=== PATIENT | male | born 1940 | race Caucasian/White ===

== ENCOUNTER 2017-06-04 07:52 | Outpatient (CLI) | payer MEDICARE ==
[2017-06-04 08:54] LABS: #Basophils 0.1 thou/uL (0.0-0.2); #Eosinphils 0.3 thou/uL (0.0-0.7); #Monocytes 0.6 thou/uL (0.11-0.59); #Neutrophils 5.5 thou/uL (1.40-6.50); %Eosinophils 3.5 % (0.0-10.0); %Lymphocytes 23.5 % (21.0-51.0); %Monocytes 7.1 % (0.0-10.0); Hemoglobin 15.8 g/dL (14.0-18.0); Mean Corpuscular HGB CONC 32.4 g/dL (32.0-36.0); Mean Corpuscular Hemoglobin 30.6 pg (27.0-31.0); Mean Corpuscular Volume 94.5 fl (80.0-94.0); Mean Platelet Volume 10.4 fL (7.4-10.4); Platelet Count 236 thou/uL (130-400); RBC Distribution Width 12.9 % (11.5-14.5); Red Blood Cell (RBC) Count 5.18 mill/uL (4.70-6.10); White Blood Cell (WBC) Count 8.5 thou/uL (4.8-10.8)
[2017-06-04 09:10] LABS: ALT (SGPT) 16 U/L (8-55); AST (SGOT) 15 U/L (5-34); Albumin 4.2 g/dL (3.4-4.8); Alkaline Phosphatase 92 U/L (40-150); Anion Gap 15 mmol/L (10-20); BUN (Urea Nitrogen) 7 mg/dL (8.4-25.7); Bilirubin, Total 0.7 mg/dL (0.2-1.2); Calc. Creatinine Clearance 0 mL/min (70-130); Calcium 9.4 mg/dL (7.8-10.44); Carbon Dioxide 25 mmol/L (23-31); Chloride 105 mmol/L (98-107); Estimated GFR-MDRD 79; Globulin 2.3 g/dL (2.4-3.5); Glucose 110 mg/dL (83-110); Potassium 4.2 mmol/L (3.5-5.1); Protein, Total 6.5 g/dL (5.8-8.1); Sodium 141 mmol/L (136-145)
== END 2017-06-04 07:53 | disposition home or self-care (01) ==
LOC: MADLABBHPM 07:52
PROVIDERS: ATTEND Family Medicine
DX: R63.4 Abnormal weight loss (principal)
CPT/HCPCS: 80053; 84443; 85025

== ENCOUNTER 2019-06-02 17:44 | Inpatient (IN) | payer MEDICARE ==
[2019-06-02] MEDS ORDERED: Famotidine 20 MG TAB PO PRN (23:57)
[2019-06-03] MEDS: Melatonin 3 MG TAB PO PRN ×2 (00:26→21:04)
[2019-06-03] MEDS: Acetaminophen/Codeine 30-300mg Tablet PO SCH ×4 (00:26→17:20)
[2019-06-03] MEDS: Ibuprofen 600 MG TAB PO SCH ×3 (05:41→21:04)
[2019-06-03 06:00] LABS: Hemoglobin 9.2 g/dL (14.0-18.0); Mean Corpuscular HGB CONC 33.7 g/dL (32.0-36.0); Mean Corpuscular Hemoglobin 30.6 pg (27.0-31.0); Mean Corpuscular Volume 90.7 fL (78.0-98.0); Mean Platelet Volume 7.7 fL (7.4-10.4); Platelet Count 166 thou/uL (130-400); Red Blood Cell (RBC) Count 3.02 mill/uL (4.70-6.10); White Blood Cell (WBC) Count 12.3 thou/uL (4.8-10.8)
[2019-06-03 06:06] LABS: ALT (SGPT) 18 U/L (8-55); AST (SGOT) 27 U/L (5-34); Albumin 2.9 g/dL (3.4-4.8); Alkaline Phosphatase 82 U/L (40-150); Anion Gap 15 mmol/L (10-20); BUN (Urea Nitrogen) 13 mg/dL (8.4-25.7); Bilirubin, Total 1.2 mg/dL (0.2-1.2); Calc. Creatinine Clearance 116 mL/min (70-130); Calcium 8.3 mg/dL (7.8-10.44); Carbon Dioxide 26 mmol/L (23-31); Chloride 101 mmol/L (98-107); Estimated GFR-MDRD Greater than 90; Globulin 2.5 g/dL (2.4-3.5); Glucose 77 mg/dL (83-110); Potassium 3.8 mmol/L (3.5-5.1); Protein, Total 5.4 g/dL (5.8-8.1); Sodium 138 mmol/L (136-145)
[2019-06-03 06:39] LABS: Anisocytosis SLIGHT = 6-15 cells (100X) (0-5/hpf); Band 8 % (5-11); Eosinophils 2 % (0-10); Lymphocytes 19 % (21-51); MDiff Complete? YES; Monocytes 8 % (0-10); Neutrophil 63 % (42-75); Platelet Morphology Comment Appears Adequate
[2019-06-03] MEDS: Rivastigmine 1.5 MG CAP PO SCH ×2 (09:42→17:19)
[2019-06-03] MEDS: Metoprolol Tartrate 25 MG TAB PO SCH (09:43)
[2019-06-03] MEDS: Clopidogrel Bisulfate 75 MG TAB PO SCH (09:43)
[2019-06-03] MEDS: Folic Acid 1 MG TAB PO SCH (09:43)
[2019-06-03] MEDS: Aspirin 325 MG TAB PO SCH (09:43)
[2019-06-03] MEDS: Dutasteride 0.5 MG CAP PO SCH (09:43)
[2019-06-03] MEDS: Ubidecarenone 50 MG CAP PO SCH (09:44)
[2019-06-03] MEDS: traMADol HCl 50 MG TAB PO PRN (10:45)
[2019-06-03] MEDS: Loratadine 10 MG TAB PO PRN (14:56)
[2019-06-03] MEDS: Atorvastatin Calcium 10 MG TAB PO SCH (20:25)
[2019-06-04] MEDS: Acetaminophen/Codeine 30-300mg Tablet PO SCH ×5 (00:36→23:01)
[2019-06-04] MEDS: traMADol HCl 50 MG TAB PO PRN ×2 (01:10→06:59)
[2019-06-04] MEDS: Loratadine 10 MG TAB PO PRN ×2 (04:40→08:18)
[2019-06-04] MEDS: Ibuprofen 600 MG TAB PO SCH ×3 (05:06→21:00)
[2019-06-04] MEDS: Dutasteride 0.5 MG CAP PO SCH (08:17)
[2019-06-04] MEDS: Aspirin 325 MG TAB PO SCH (08:18)
[2019-06-04] MEDS: Metoprolol Tartrate 25 MG TAB PO SCH (08:18)
[2019-06-04] MEDS: Clopidogrel Bisulfate 75 MG TAB PO SCH (08:18)
[2019-06-04] MEDS: Ubidecarenone 50 MG CAP PO SCH (08:18)
[2019-06-04] MEDS: Rivastigmine 1.5 MG CAP PO SCH ×2 (08:18→17:50)
[2019-06-04] MEDS: Folic Acid 1 MG TAB PO SCH (08:18)
[2019-06-04] MEDS: Melatonin 3 MG TAB PO PRN (21:00)
[2019-06-04] MEDS: Atorvastatin Calcium 10 MG TAB PO SCH (21:00)
[2019-06-05] MEDS: Ibuprofen 600 MG TAB PO SCH ×4 (05:12→21:05)
[2019-06-05] MEDS: Acetaminophen/Codeine 30-300mg Tablet PO SCH ×3 (05:12→17:25)
[2019-06-05] MEDS: Ubidecarenone 50 MG CAP PO SCH (08:25)
[2019-06-05] MEDS: Rivastigmine 1.5 MG CAP PO SCH ×2 (08:26→17:30)
[2019-06-05] MEDS: Folic Acid 1 MG TAB PO SCH (08:26)
[2019-06-05] MEDS: Metoprolol Tartrate 25 MG TAB PO SCH (08:26)
[2019-06-05] MEDS: Dutasteride 0.5 MG CAP PO SCH (08:26)
[2019-06-05] MEDS: Aspirin 325 MG TAB PO SCH (08:26)
[2019-06-05] MEDS: Loratadine 10 MG TAB PO PRN ×2 (08:26→21:05)
[2019-06-05] MEDS: Clopidogrel Bisulfate 75 MG TAB PO SCH (08:26)
[2019-06-05] MEDS: Atorvastatin Calcium 10 MG TAB PO SCH (21:05)
[2019-06-05] MEDS: Melatonin 3 MG TAB PO PRN (21:05)
[2019-06-06] MEDS: Acetaminophen/Codeine 30-300mg Tablet PO SCH ×2 (01:02→05:27)
[2019-06-06] MEDS: Ibuprofen 600 MG TAB PO SCH (05:27)
[2019-06-06] MEDS: Ibuprofen 800 MG TAB PO SCH ×3 (06:14→21:04)
[2019-06-06] MEDS: HYDROcodone/Acetaminophen 10/325 mg Tablet PO PRN ×2 (08:20→18:46)
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
[2019-06-06] MEDS: Ubidecarenone 50 MG CAP PO SCH (08:21)
[2019-06-06] MEDS: Dutasteride 0.5 MG CAP PO SCH (08:21)
[2019-06-06] MEDS: Clopidogrel Bisulfate 75 MG TAB PO SCH (08:21)
[2019-06-06] MEDS: Metoprolol Tartrate 25 MG TAB PO SCH (08:22)
[2019-06-06] MEDS: Loratadine 10 MG TAB PO PRN (08:22)
[2019-06-06] MEDS: Folic Acid 1 MG TAB PO SCH (08:22)
[2019-06-06] MEDS: Rivastigmine 1.5 MG CAP PO SCH ×2 (08:22→17:30)
[2019-06-06] MEDS: Aspirin 325 MG TAB PO SCH (08:22)
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
[2019-06-06] MEDS: Atorvastatin Calcium 10 MG TAB PO SCH (21:07)
[2019-06-07] MEDS: HYDROcodone/Acetaminophen 10/325 mg Tablet PO PRN ×3 (05:42→21:56)
[2019-06-07] MEDS: Ibuprofen 800 MG TAB PO SCH ×3 (05:43→21:56)
[2019-06-07 06:26] LABS: #Basophils 0.1 thou/uL (0.0-0.2); #Eosinphils 0.7 thou/uL (0.0-0.7); #Lymphocytes 2.1 thou/uL (1.20-3.40); #Neutrophils 8.6 thou/uL (1.40-6.50); %Basophils 0.7 % (0.0-1.0); %Eosinophils 5.8 % (0.0-10.0); %Lymphocytes 16.8 % (21.0-51.0); %Neutrophils 68.7 % (42.0-75.0); Hemoglobin 9.5 g/dL (14.0-18.0); Mean Corpuscular HGB CONC 34.4 g/dL (32.0-36.0); Mean Corpuscular Hemoglobin 30.8 pg (27.0-31.0); Mean Corpuscular Volume 89.5 fL (78.0-98.0); Mean Platelet Volume 6.1 fL (7.4-10.4); Platelet Count 329 thou/uL (130-400); Red Blood Cell (RBC) Count 3.07 mill/uL (4.70-6.10); White Blood Cell (WBC) Count 12.4 thou/uL (4.8-10.8)
[2019-06-07 06:40] LABS: Anion Gap 14 mmol/L (10-20); BUN (Urea Nitrogen) 12 mg/dL (8.4-25.7); Calc. Creatinine Clearance 118 mL/min (70-130); Calcium 8.4 mg/dL (7.8-10.44); Carbon Dioxide 24 mmol/L (23-31); Chloride 102 mmol/L (98-107); Estimated GFR-MDRD Greater than 90; Glucose 93 mg/dL (83-110); Potassium 3.3 mmol/L (3.5-5.1); Sodium 137 mmol/L (136-145)
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
[2019-06-07] MEDS: Rivastigmine 1.5 MG CAP PO SCH ×2 (09:23→16:15)
[2019-06-07] MEDS: Dutasteride 0.5 MG CAP PO SCH (09:23)
[2019-06-07] MEDS: Clopidogrel Bisulfate 75 MG TAB PO SCH (09:23)
[2019-06-07] MEDS: Aspirin 325 MG TAB PO SCH (09:24)
[2019-06-07] MEDS: Metoprolol Tartrate 25 MG TAB PO SCH (09:24)
[2019-06-07] MEDS: Folic Acid 1 MG TAB PO SCH (09:24)
[2019-06-07] MEDS: Potassium Chloride 10 MEQ TAB PO SCH ×2 (09:29→16:14)
[2019-06-07] MEDS: Atorvastatin Calcium 10 MG TAB PO SCH (21:58)
[2019-06-08] MEDS: Ibuprofen 800 MG TAB PO SCH ×3 (05:15→21:19)
[2019-06-08] MEDS: HYDROcodone/Acetaminophen 10/325 mg Tablet PO PRN ×4 (05:16→23:07)
[2019-06-08] MEDS: Rivastigmine 1.5 MG CAP PO SCH ×2 (08:07→17:14)
[2019-06-08] MEDS: Dutasteride 0.5 MG CAP PO SCH (08:07)
[2019-06-08] MEDS: Metoprolol Tartrate 25 MG TAB PO SCH ×2 (08:07→21:19)
[2019-06-08] MEDS: Potassium Chloride 10 MEQ TAB PO SCH ×2 (08:07→17:13)
[2019-06-08] MEDS: Aspirin 325 MG TAB PO SCH (08:07)
[2019-06-08] MEDS: Clopidogrel Bisulfate 75 MG TAB PO SCH (08:07)
[2019-06-08] MEDS: Folic Acid 1 MG TAB PO SCH (08:08)
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
[2019-06-08] MEDS: Atorvastatin Calcium 10 MG TAB PO SCH (21:19)
[2019-06-09] MEDS: Ibuprofen 800 MG TAB PO SCH ×3 (05:03→21:18)
[2019-06-09] MEDS: HYDROcodone/Acetaminophen 10/325 mg Tablet PO PRN ×4 (05:03→23:23)
[2019-06-09] MEDS: Potassium Chloride 10 MEQ TAB PO SCH ×2 (09:31→16:28)
[2019-06-09] MEDS: Rivastigmine 1.5 MG CAP PO SCH ×2 (09:31→16:29)
[2019-06-09] MEDS: Metoprolol Tartrate 25 MG TAB PO SCH ×2 (09:32→21:18)
[2019-06-09] MEDS: Dutasteride 0.5 MG CAP PO SCH (09:32)
[2019-06-09] MEDS: Folic Acid 1 MG TAB PO SCH (09:32)
[2019-06-09] MEDS: Aspirin 325 MG TAB PO SCH (09:32)
[2019-06-09] MEDS: Clopidogrel Bisulfate 75 MG TAB PO SCH (09:32)
[2019-06-09] MEDS ORDERED: Docusate 100 MG CAP PO PRN (10:58)
[2019-06-09] MEDS ORDERED: Polyethylene Glycol 3350 17 GM Packet PO SCH (11:00)
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
[2019-06-09] MEDS ORDERED: Bisacodyl 5 MG TAB PO PRN (16:11)
[2019-06-09] MEDS: Atorvastatin Calcium 10 MG TAB PO SCH (21:17)
[2019-06-09] MEDS: Melatonin 3 MG TAB PO PRN (21:18)
[2019-06-10] MEDS: Ibuprofen 800 MG TAB PO SCH ×3 (05:06→21:09)
[2019-06-10 05:30] LABS: %Basophils 1.1 % (0.0-1.0); %Eosinophils 5.3 % (0.0-10.0); %Lymphocytes 13.9 % (21.0-51.0); %Monocytes 5.3 % (0.0-10.0); %Neutrophils 74.4 % (42.0-75.0); Hemoglobin 10.2 g/dL (14.0-18.0); Mean Corpuscular Hemoglobin 31.4 pg (27.0-31.0); Mean Corpuscular Volume 92.5 fL (78.0-98.0); Mean Platelet Volume 6.4 fL (7.4-10.4); Platelet Count 380 thou/uL (130-400); RBC Distribution Width 15.8 % (11.5-14.5); Red Blood Cell (RBC) Count 3.36 mill/uL (4.70-6.10); White Blood Cell (WBC) Count 12.9 thou/uL (4.8-10.8)
[2019-06-10 05:31] LABS: #Basophils 0.1 thou/uL (0.0-0.2); #Eosinphils 0.7 thou/uL (0.0-0.7); #Lymphocytes 1.8 thou/uL (1.20-3.40); #Monocytes 0.7 thou/uL (0.11-0.59); #Neutrophils 9.6 thou/uL (1.40-6.50)
[2019-06-10 05:33] LABS: Anion Gap 15 mmol/L (10-20); BUN (Urea Nitrogen) 14 mg/dL (8.4-25.7); Calc. Creatinine Clearance 113 mL/min (70-130); Calcium 8.7 mg/dL (7.8-10.44); Carbon Dioxide 22 mmol/L (23-31); Chloride 105 mmol/L (98-107); Estimated GFR-MDRD Greater than 90; Glucose 99 mg/dL (83-110); Potassium 4.1 mmol/L (3.5-5.1); Sodium 138 mmol/L (136-145)
[2019-06-10] MEDS: Rivastigmine 1.5 MG CAP PO SCH ×2 (08:19→17:14)
[2019-06-10] MEDS: Polyethylene Glycol 3350 17 GM Packet PO SCH (08:19)
[2019-06-10] MEDS: Dutasteride 0.5 MG CAP PO SCH (08:20)
[2019-06-10] MEDS: Aspirin 325 MG TAB PO SCH (08:20)
[2019-06-10] MEDS: HYDROcodone/Acetaminophen 10/325 mg Tablet PO PRN ×3 (08:21→20:33)
[2019-06-10] MEDS: Clopidogrel Bisulfate 75 MG TAB PO SCH (08:23)
[2019-06-10] MEDS: Potassium Chloride 10 MEQ TAB PO SCH (08:23)
[2019-06-10] MEDS: Folic Acid 1 MG TAB PO SCH (08:23)
[2019-06-10] MEDS: Metoprolol Tartrate 25 MG TAB PO SCH ×2 (08:23→20:35)
[2019-06-10] MEDS: Atorvastatin Calcium 10 MG TAB PO SCH (20:35)
[2019-06-11] MEDS: HYDROcodone/Acetaminophen 10/325 mg Tablet PO PRN ×3 (02:29→16:09)
[2019-06-11] MEDS: Ibuprofen 800 MG TAB PO SCH ×3 (05:51→20:41)
[2019-06-11] MEDS: Dutasteride 0.5 MG CAP PO SCH (08:47)
[2019-06-11] MEDS: Clopidogrel Bisulfate 75 MG TAB PO SCH (08:47)
[2019-06-11] MEDS: Folic Acid 1 MG TAB PO SCH (08:47)
[2019-06-11] MEDS: Aspirin 325 MG TAB PO SCH (08:47)
[2019-06-11] MEDS: Metoprolol Tartrate 25 MG TAB PO SCH ×2 (08:47→20:41)
[2019-06-11] MEDS: Rivastigmine 1.5 MG CAP PO SCH ×2 (08:48→16:18)
[2019-06-11] MEDS: Polyethylene Glycol 3350 17 GM Packet PO SCH (08:49)
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
[2019-06-11] MEDS: Atorvastatin Calcium 10 MG TAB PO SCH (20:41)
[2019-06-11] MEDS: Melatonin 3 MG TAB PO PRN (20:42)
[2019-06-12] MEDS: HYDROcodone/Acetaminophen 10/325 mg Tablet PO PRN ×3 (00:56→14:18)
[2019-06-12] MEDS: Ibuprofen 800 MG TAB PO SCH ×3 (06:05→22:44)
[2019-06-12] MEDS: Polyethylene Glycol 3350 17 GM Packet PO SCH (08:21)
[2019-06-12] MEDS: Rivastigmine 1.5 MG CAP PO SCH ×2 (08:21→16:44)
[2019-06-12] MEDS: Metoprolol Tartrate 25 MG TAB PO SCH ×2 (08:23→20:22)
[2019-06-12] MEDS: Aspirin 325 MG TAB PO SCH (08:23)
[2019-06-12] MEDS: Dutasteride 0.5 MG CAP PO SCH (08:23)
[2019-06-12] MEDS: Clopidogrel Bisulfate 75 MG TAB PO SCH (08:23)
[2019-06-12] MEDS: Folic Acid 1 MG TAB PO SCH (08:23)
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
[2019-06-12] MEDS: Atorvastatin Calcium 10 MG TAB PO SCH (20:21)
[2019-06-13] MEDS: HYDROcodone/Acetaminophen 10/325 mg Tablet PO PRN ×3 (02:01→18:58)
[2019-06-13] MEDS: Ibuprofen 800 MG TAB PO SCH (06:32)
[2019-06-13] MEDS: Folic Acid 1 MG TAB PO SCH (08:44)
[2019-06-13] MEDS: Rivastigmine 1.5 MG CAP PO SCH ×2 (08:44→17:11)
[2019-06-13] MEDS: Aspirin 325 MG TAB PO SCH (08:45)
[2019-06-13] MEDS: Metoprolol Tartrate 25 MG TAB PO SCH ×2 (08:45→21:08)
[2019-06-13] MEDS: Dutasteride 0.5 MG CAP PO SCH (08:45)
[2019-06-13] MEDS: Clopidogrel Bisulfate 75 MG TAB PO SCH (08:46)
[2019-06-13] MEDS: Polyethylene Glycol 3350 17 GM Packet PO SCH (08:46)
[2019-06-13] MEDS: Ibuprofen 200 MG TAB PO SCH ×2 (08:49→14:46)
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
[2019-06-13] MEDS: Ibuprofen 200 MG TAB PO PRN (19:34)
[2019-06-13] MEDS: Atorvastatin Calcium 10 MG TAB PO SCH (21:07)
[2019-06-13] MEDS: Melatonin 3 MG TAB PO PRN (21:49)
[2019-06-14] MEDS: HYDROcodone/Acetaminophen 10/325 mg Tablet PO PRN ×4 (03:14→22:09)
[2019-06-14] MEDS: Ibuprofen 200 MG TAB PO PRN ×4 (03:17→22:10)
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
[2019-06-14] MEDS: Rivastigmine 1.5 MG CAP PO SCH ×2 (09:19→16:12)
[2019-06-14] MEDS: Aspirin 325 MG TAB PO SCH (09:21)
[2019-06-14] MEDS: Dutasteride 0.5 MG CAP PO SCH (09:21)
[2019-06-14] MEDS: Folic Acid 1 MG TAB PO SCH (09:21)
[2019-06-14] MEDS: Metoprolol Tartrate 25 MG TAB PO SCH ×2 (09:21→20:41)
[2019-06-14] MEDS: Clopidogrel Bisulfate 75 MG TAB PO SCH (09:21)
[2019-06-14] MEDS: Polyethylene Glycol 3350 17 GM Packet PO SCH (09:22)
[2019-06-14] MEDS: Atorvastatin Calcium 10 MG TAB PO SCH (20:41)
[2019-06-14] MEDS: Melatonin 3 MG TAB PO PRN (22:10)
[2019-06-15] MEDS: Ibuprofen 200 MG TAB PO PRN ×2 (03:36→13:18)
[2019-06-15] MEDS: HYDROcodone/Acetaminophen 10/325 mg Tablet PO PRN ×3 (04:07→20:32)
[2019-06-15] MEDS: Dutasteride 0.5 MG CAP PO SCH (08:16)
[2019-06-15] MEDS: Clopidogrel Bisulfate 75 MG TAB PO SCH (08:16)
[2019-06-15] MEDS: Metoprolol Tartrate 25 MG TAB PO SCH ×2 (08:16→20:32)
[2019-06-15] MEDS: Aspirin 325 MG TAB PO SCH (08:16)
[2019-06-15] MEDS: Folic Acid 1 MG TAB PO SCH (08:17)
[2019-06-15] MEDS: Rivastigmine 1.5 MG CAP PO SCH ×2 (08:17→16:51)
[2019-06-15] MEDS: Polyethylene Glycol 3350 17 GM Packet PO SCH (08:18)
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
[2019-06-15] MEDS: Atorvastatin Calcium 10 MG TAB PO SCH (20:32)
[2019-06-15] MEDS: Melatonin 3 MG TAB PO PRN (20:45)
[2019-06-16] MEDS: Ibuprofen 200 MG TAB PO PRN ×4 (01:26→20:18)
[2019-06-16] MEDS: HYDROcodone/Acetaminophen 10/325 mg Tablet PO PRN ×4 (01:27→20:19)
[2019-06-16] MEDS: Rivastigmine 1.5 MG CAP PO SCH ×2 (08:05→16:53)
[2019-06-16] MEDS: Dutasteride 0.5 MG CAP PO SCH (08:05)
[2019-06-16] MEDS: Folic Acid 1 MG TAB PO SCH (08:05)
[2019-06-16] MEDS: Aspirin 325 MG TAB PO SCH (08:05)
[2019-06-16] MEDS: Clopidogrel Bisulfate 75 MG TAB PO SCH (08:05)
[2019-06-16] MEDS: Metoprolol Tartrate 25 MG TAB PO SCH ×2 (08:05→20:21)
[2019-06-16] MEDS: Polyethylene Glycol 3350 17 GM Packet PO SCH (08:06)
[2019-06-16 09:23] LABS: ALT (SGPT) 28 U/L (8-55); AST (SGOT) 28 U/L (5-34); Albumin 3.5 g/dL (3.4-4.8); Alkaline Phosphatase 259 U/L (40-150); Anion Gap 15 mmol/L (10-20); BUN (Urea Nitrogen) 15 mg/dL (8.4-25.7); Bilirubin, Total 0.9 mg/dL (0.2-1.2); Calc. Creatinine Clearance 94 mL/min (70-130); Calcium 9.2 mg/dL (7.8-10.44); Carbon Dioxide 25 mmol/L (23-31); Chloride 101 mmol/L (98-107); Estimated GFR-MDRD Greater than 90; Globulin 3.5 g/dL (2.4-3.5); Glucose 129 mg/dL (83-110); Potassium 4.4 mmol/L (3.5-5.1); Sodium 137 mmol/L (136-145)
[2019-06-16 09:25] LABS: #Basophils 0.2 thou/uL (0.0-0.2); #Eosinphils 0.5 thou/uL (0.0-0.7); #Lymphocytes 1.7 thou/uL (1.20-3.40); #Monocytes 0.5 thou/uL (0.11-0.59); #Neutrophils 5.8 thou/uL (1.40-6.50); %Eosinophils 6.1 % (0.0-10.0); %Lymphocytes 19.4 % (21.0-51.0); %Monocytes 6.2 % (0.0-10.0); %Neutrophils 66.4 % (42.0-75.0); Hemoglobin 11.6 g/dL (14.0-18.0); Mean Corpuscular HGB CONC 33.9 g/dL (32.0-36.0); Mean Corpuscular Hemoglobin 31.1 pg (27.0-31.0); Mean Corpuscular Volume 91.7 fL (78.0-98.0); Mean Platelet Volume 6.7 fL (7.4-10.4); Platelet Count 486 thou/uL (130-400); RBC Distribution Width 14.7 % (11.5-14.5); Red Blood Cell (RBC) Count 3.72 mill/uL (4.70-6.10); White Blood Cell (WBC) Count 8.8 thou/uL (4.8-10.8)
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
[2019-06-16] MEDS: Atorvastatin Calcium 10 MG TAB PO SCH (20:17)
[2019-06-16] MEDS: Melatonin 3 MG TAB PO PRN (20:17)
[2019-06-17] MEDS: Ibuprofen 200 MG TAB PO PRN ×4 (02:10→21:28)
[2019-06-17] MEDS: HYDROcodone/Acetaminophen 10/325 mg Tablet PO PRN ×4 (02:11→21:31)
[2019-06-17] MEDS: Polyethylene Glycol 3350 17 GM Packet PO SCH (08:11)
[2019-06-17] MEDS: Loratadine 10 MG TAB PO PRN (08:11)
[2019-06-17] MEDS: Rivastigmine 1.5 MG CAP PO SCH ×2 (08:11→17:41)
[2019-06-17] MEDS: Dutasteride 0.5 MG CAP PO SCH (08:13)
[2019-06-17] MEDS: Aspirin 325 MG TAB PO SCH (08:13)
[2019-06-17] MEDS: Clopidogrel Bisulfate 75 MG TAB PO SCH (08:13)
[2019-06-17] MEDS: Metoprolol Tartrate 25 MG TAB PO SCH ×2 (08:13→21:31)
[2019-06-17] MEDS: Folic Acid 1 MG TAB PO SCH (08:13)
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
[2019-06-17] MEDS: Melatonin 3 MG TAB PO PRN (21:30)
[2019-06-17] MEDS: Atorvastatin Calcium 10 MG TAB PO SCH (21:31)
[2019-06-18] MEDS: Ibuprofen 200 MG TAB PO PRN ×2 (05:27→19:35)
[2019-06-18] MEDS: HYDROcodone/Acetaminophen 10/325 mg Tablet PO PRN ×3 (05:28→19:36)
[2019-06-18] MEDS: Aspirin 325 MG TAB PO SCH (09:20)
[2019-06-18] MEDS: Metoprolol Tartrate 25 MG TAB PO SCH ×2 (09:20→20:54)
[2019-06-18] MEDS: Folic Acid 1 MG TAB PO SCH (09:20)
[2019-06-18] MEDS: Dutasteride 0.5 MG CAP PO SCH (09:20)
[2019-06-18] MEDS: Rivastigmine 1.5 MG CAP PO SCH ×2 (09:20→16:49)
[2019-06-18] MEDS: Polyethylene Glycol 3350 17 GM Packet PO SCH (09:20)
[2019-06-18] MEDS: Clopidogrel Bisulfate 75 MG TAB PO SCH (09:20)
[2019-06-18] MEDS: Atorvastatin Calcium 10 MG TAB PO SCH (20:53)
[2019-06-18] MEDS: Melatonin 3 MG TAB PO PRN (20:54)
[2019-06-19] MEDS: Ibuprofen 200 MG TAB PO PRN ×3 (02:09→17:09)
[2019-06-19] MEDS: HYDROcodone/Acetaminophen 10/325 mg Tablet PO PRN ×4 (02:10→19:56)
[2019-06-19] MEDS: Aspirin 325 MG TAB PO SCH (08:02)
[2019-06-19] MEDS: Rivastigmine 1.5 MG CAP PO SCH ×2 (08:02→16:48)
[2019-06-19] MEDS: Polyethylene Glycol 3350 17 GM Packet PO SCH (08:02)
[2019-06-19] MEDS: Dutasteride 0.5 MG CAP PO SCH (08:02)
[2019-06-19] MEDS: Metoprolol Tartrate 25 MG TAB PO SCH ×2 (08:03→21:48)
[2019-06-19] MEDS: Clopidogrel Bisulfate 75 MG TAB PO SCH (08:03)
[2019-06-19] MEDS: Folic Acid 1 MG TAB PO SCH (08:03)
[2019-06-19] MEDS: Melatonin 3 MG TAB PO PRN (21:48)
[2019-06-19] MEDS: Atorvastatin Calcium 10 MG TAB PO SCH (21:48)
[2019-06-20] MEDS: HYDROcodone/Acetaminophen 10/325 mg Tablet PO PRN ×4 (02:21→20:42)
[2019-06-20] MEDS: Ibuprofen 200 MG TAB PO PRN ×2 (07:19→13:34)
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
[2019-06-20] MEDS: Metoprolol Tartrate 25 MG TAB PO SCH ×2 (09:26→20:41)
[2019-06-20] MEDS: Aspirin 325 MG TAB PO SCH (09:26)
[2019-06-20] MEDS: Clopidogrel Bisulfate 75 MG TAB PO SCH (09:26)
[2019-06-20] MEDS: Dutasteride 0.5 MG CAP PO SCH (09:26)
[2019-06-20] MEDS: Polyethylene Glycol 3350 17 GM Packet PO SCH (09:26)
[2019-06-20] MEDS: Folic Acid 1 MG TAB PO SCH (09:26)
[2019-06-20] MEDS: Rivastigmine 4.6mg/24 Hour PATCH TD SCH (09:29)
[2019-06-20] MEDS: Rivastigmine 1.5 MG CAP PO SCH (09:59)
--- NOTE | 2019-06-20 10:00 | RAD ---
Portable frontal chest radiograph: 06/20/2019 COMPARISON: 06/02/2019 HISTORY: History of pulmonary contusion FINDINGS: Multiple stable bilateral rib fractures. Heart and mediastinal contours are stable. Stable increased linear interstitial density. No pneumothorax. No lobar consolidation or alveolar edema. Stable old right clavicle fracture. IMPRESSION: No acute findings.
[2019-06-20 10:21] LABS: #Basophils 0.2 thou/uL (0.0-0.2); #Eosinphils 0.5 thou/uL (0.0-0.7); #Lymphocytes 1.2 thou/uL (1.20-3.40); #Monocytes 0.8 thou/uL (0.11-0.59); #Neutrophils 8.8 thou/uL (1.40-6.50); %Basophils 1.3 % (0.0-1.0); %Lymphocytes 10.2 % (21.0-51.0); %Monocytes 6.9 % (0.0-10.0); %Neutrophils 77.6 % (42.0-75.0); Hemoglobin 12.1 g/dL (14.0-18.0); Mean Corpuscular HGB CONC 32.3 g/dL (32.0-36.0); Mean Corpuscular Volume 92.8 fL (78.0-98.0); Mean Platelet Volume 7.3 fL (7.4-10.4); Platelet Count 486 thou/uL (130-400); RBC Distribution Width 15.4 % (11.5-14.5); Red Blood Cell (RBC) Count 4.04 mill/uL (4.70-6.10); White Blood Cell (WBC) Count 11.4 thou/uL (4.8-10.8)
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
[2019-06-20 11:15] LABS: ALT (SGPT) 33 U/L (8-55); AST (SGOT) 28 U/L (5-34); Albumin 3.5 g/dL (3.4-4.8); Alkaline Phosphatase 266 U/L (40-150); Anion Gap 16 mmol/L (10-20); BUN (Urea Nitrogen) 18 mg/dL (8.4-25.7); Bilirubin, Total 0.8 mg/dL (0.2-1.2); Calc. Creatinine Clearance 85 mL/min (70-130); Calcium 9.4 mg/dL (7.8-10.44); Carbon Dioxide 24 mmol/L (23-31); Chloride 101 mmol/L (98-107); Estimated GFR-MDRD Greater than 90; Globulin 3.3 g/dL (2.4-3.5); Glucose 121 mg/dL (83-110); Potassium 4.3 mmol/L (3.5-5.1); Protein, Total 6.8 g/dL (5.8-8.1); Sodium 137 mmol/L (136-145)
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
[2019-06-20] MEDS ORDERED: HYDROcodone/Acetaminophen 10/325 mg Tablet PO SCH (14:00)
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
[2019-06-20] MEDS: Atorvastatin Calcium 10 MG TAB PO SCH (20:41)
[2019-06-20] MEDS: Melatonin 3 MG TAB PO PRN (20:41)
[2019-06-21] MEDS: HYDROcodone/Acetaminophen 10/325 mg Tablet PO PRN ×3 (03:27→20:25)
[2019-06-21] MEDS: Folic Acid 1 MG TAB PO SCH (08:15)
[2019-06-21] MEDS: Aspirin 325 MG TAB PO SCH (08:15)
[2019-06-21] MEDS: Clopidogrel Bisulfate 75 MG TAB PO SCH (08:15)
[2019-06-21] MEDS: Polyethylene Glycol 3350 17 GM Packet PO SCH (08:15)
[2019-06-21] MEDS: Rivastigmine 4.6mg/24 Hour PATCH TD SCH (08:15)
[2019-06-21] MEDS: Dutasteride 0.5 MG CAP PO SCH (08:15)
[2019-06-21] MEDS: Metoprolol Tartrate 25 MG TAB PO SCH ×2 (08:16→20:25)
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
[2019-06-21] MEDS: Ibuprofen 200 MG TAB PO PRN (13:46)
[2019-06-21] MEDS: Atorvastatin Calcium 10 MG TAB PO SCH (20:25)
[2019-06-21] MEDS: Loratadine 10 MG TAB PO PRN (20:25)
[2019-06-21] MEDS: Melatonin 3 MG TAB PO PRN (20:25)
[2019-06-22] MEDS: HYDROcodone/Acetaminophen 10/325 mg Tablet PO PRN ×4 (04:47→23:07)
[2019-06-22] MEDS ORDERED: Polyethylene Glycol 3350 17 GM Packet PO PRN (08:22)
[2019-06-22] MEDS: Ibuprofen 200 MG TAB PO PRN ×2 (09:00→19:30)
[2019-06-22] MEDS: Folic Acid 1 MG TAB PO SCH (09:01)
[2019-06-22] MEDS: Clopidogrel Bisulfate 75 MG TAB PO SCH (09:01)
[2019-06-22] MEDS: Metoprolol Tartrate 25 MG TAB PO SCH ×2 (09:01→20:24)
[2019-06-22] MEDS: Saccharomyces boulardii 250 MG CAP PO SCH (09:01)
[2019-06-22] MEDS: Aspirin 325 MG TAB PO SCH (09:01)
[2019-06-22] MEDS: Rivastigmine 4.6mg/24 Hour PATCH TD SCH (09:02)
[2019-06-22] MEDS: Dutasteride 0.5 MG CAP PO SCH (09:02)
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
[2019-06-22] MEDS: Atorvastatin Calcium 10 MG TAB PO SCH (20:23)
[2019-06-23] MEDS: HYDROcodone/Acetaminophen 10/325 mg Tablet PO PRN ×3 (08:45→22:35)
[2019-06-23] MEDS: Dutasteride 0.5 MG CAP PO SCH (08:46)
[2019-06-23] MEDS: Metoprolol Tartrate 25 MG TAB PO SCH ×2 (08:46→20:10)
[2019-06-23] MEDS: Folic Acid 1 MG TAB PO SCH (08:46)
[2019-06-23] MEDS: Saccharomyces boulardii 250 MG CAP PO SCH (08:46)
[2019-06-23] MEDS: Clopidogrel Bisulfate 75 MG TAB PO SCH (08:46)
[2019-06-23] MEDS: Rivastigmine 4.6mg/24 Hour PATCH TD SCH (08:46)
[2019-06-23] MEDS: Aspirin 325 MG TAB PO SCH (08:46)
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
[2019-06-23] MEDS: Ibuprofen 200 MG TAB PO PRN ×2 (11:46→20:10)
[2019-06-23 13:10] VITALS: BMI 24.4
[2019-06-23] MEDS: Melatonin 3 MG TAB PO PRN (20:10)
[2019-06-23] MEDS: Atorvastatin Calcium 10 MG TAB PO SCH (20:10)
[2019-06-24] MEDS: HYDROcodone/Acetaminophen 10/325 mg Tablet PO PRN ×2 (07:47→16:28)
[2019-06-24] MEDS: Dutasteride 0.5 MG CAP PO SCH (09:15)
[2019-06-24] MEDS: Aspirin 325 MG TAB PO SCH (09:15)
[2019-06-24] MEDS: Clopidogrel Bisulfate 75 MG TAB PO SCH (09:15)
[2019-06-24] MEDS: Loratadine 10 MG TAB PO PRN (09:15)
[2019-06-24] MEDS: Metoprolol Tartrate 25 MG TAB PO SCH ×2 (09:15→21:14)
[2019-06-24] MEDS: Folic Acid 1 MG TAB PO SCH (09:15)
[2019-06-24] MEDS: Rivastigmine 4.6mg/24 Hour PATCH TD SCH (09:15)
[2019-06-24] MEDS: Saccharomyces boulardii 250 MG CAP PO SCH (09:15)
[2019-06-24] MEDS: Ibuprofen 200 MG TAB PO PRN ×2 (10:59→21:14)
[2019-06-24] MEDS: Melatonin 3 MG TAB PO PRN (21:14)
[2019-06-24] MEDS: Atorvastatin Calcium 10 MG TAB PO SCH (21:14)
[2019-06-25] MEDS: Ibuprofen 200 MG TAB PO PRN ×3 (08:31→21:15)
[2019-06-25] MEDS: Rivastigmine 4.6mg/24 Hour PATCH TD SCH (08:31)
[2019-06-25] MEDS: Saccharomyces boulardii 250 MG CAP PO SCH (08:31)
[2019-06-25] MEDS: Aspirin 325 MG TAB PO SCH (08:31)
[2019-06-25] MEDS: Clopidogrel Bisulfate 75 MG TAB PO SCH (08:31)
[2019-06-25] MEDS: Dutasteride 0.5 MG CAP PO SCH (08:31)
[2019-06-25] MEDS: Metoprolol Tartrate 25 MG TAB PO SCH ×2 (08:31→21:14)
[2019-06-25] MEDS: Folic Acid 1 MG TAB PO SCH (08:31)
[2019-06-25] MEDS: HYDROcodone/Acetaminophen 10/325 mg Tablet PO PRN ×2 (10:23→16:34)
[2019-06-25] MEDS: Loratadine 10 MG TAB PO PRN (10:25)
[2019-06-25] MEDS: Atorvastatin Calcium 10 MG TAB PO SCH (21:14)
[2019-06-25] MEDS: Melatonin 3 MG TAB PO PRN (21:14)
[2019-06-26] MEDS: Dutasteride 0.5 MG CAP PO SCH (07:58)
[2019-06-26] MEDS: Rivastigmine 4.6mg/24 Hour PATCH TD SCH (07:59)
[2019-06-26] MEDS: Clopidogrel Bisulfate 75 MG TAB PO SCH (07:59)
[2019-06-26] MEDS: Folic Acid 1 MG TAB PO SCH (07:59)
[2019-06-26] MEDS: Metoprolol Tartrate 25 MG TAB PO SCH ×2 (07:59→20:15)
[2019-06-26] MEDS: Aspirin 325 MG TAB PO SCH (07:59)
[2019-06-26] MEDS: Saccharomyces boulardii 250 MG CAP PO SCH (07:59)
[2019-06-26] MEDS: HYDROcodone/Acetaminophen 10/325 mg Tablet PO PRN ×3 (07:59→21:07)
[2019-06-26] MEDS: Ibuprofen 200 MG TAB PO PRN ×2 (10:43→20:14)
[2019-06-26] MEDS: Melatonin 3 MG TAB PO PRN (20:14)
[2019-06-26] MEDS: Atorvastatin Calcium 10 MG TAB PO SCH (20:15)
[2019-06-27] MEDS: HYDROcodone/Acetaminophen 10/325 mg Tablet PO PRN ×2 (05:54→18:08)
[2019-06-27] MEDS: Aspirin 325 MG TAB PO SCH (08:07)
[2019-06-27] MEDS: Metoprolol Tartrate 25 MG TAB PO SCH ×2 (08:07→20:31)
[2019-06-27] MEDS: Dutasteride 0.5 MG CAP PO SCH (08:07)
[2019-06-27] MEDS: Clopidogrel Bisulfate 75 MG TAB PO SCH (08:07)
[2019-06-27] MEDS: Loratadine 10 MG TAB PO PRN (08:08)
[2019-06-27] MEDS: Saccharomyces boulardii 250 MG CAP PO SCH (08:08)
[2019-06-27] MEDS: Folic Acid 1 MG TAB PO SCH (08:08)
[2019-06-27] MEDS: Rivastigmine 4.6mg/24 Hour PATCH TD SCH (08:08)
[2019-06-27] MEDS: Ibuprofen 200 MG TAB PO PRN ×2 (08:09→20:31)
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
[2019-06-27] MEDS: Melatonin 3 MG TAB PO PRN (20:31)
[2019-06-27] MEDS: Atorvastatin Calcium 10 MG TAB PO SCH (20:31)
[2019-06-28] MEDS: Ibuprofen 200 MG TAB PO PRN ×2 (04:23→21:07)
[2019-06-28] MEDS: HYDROcodone/Acetaminophen 10/325 mg Tablet PO PRN ×2 (07:49→15:01)
[2019-06-28] MEDS: Dutasteride 0.5 MG CAP PO SCH (08:36)
[2019-06-28] MEDS: Rivastigmine 4.6mg/24 Hour PATCH TD SCH (08:36)
[2019-06-28] MEDS: Aspirin 325 MG TAB PO SCH (08:36)
[2019-06-28] MEDS: Saccharomyces boulardii 250 MG CAP PO SCH (08:36)
[2019-06-28] MEDS: Metoprolol Tartrate 25 MG TAB PO SCH ×2 (08:37→21:06)
[2019-06-28] MEDS: Loratadine 10 MG TAB PO PRN (08:37)
[2019-06-28] MEDS: Clopidogrel Bisulfate 75 MG TAB PO SCH (08:37)
[2019-06-28] MEDS: Folic Acid 1 MG TAB PO SCH (08:37)
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
[2019-06-28] MEDS: Atorvastatin Calcium 10 MG TAB PO SCH (21:06)
[2019-06-28] MEDS: Melatonin 3 MG TAB PO PRN (21:07)
[2019-06-29] MEDS: HYDROcodone/Acetaminophen 10/325 mg Tablet PO PRN ×2 (02:41→10:38)
[2019-06-29] MEDS: Dutasteride 0.5 MG CAP PO SCH (08:07)
[2019-06-29] MEDS: Aspirin 325 MG TAB PO SCH (08:07)
[2019-06-29] MEDS: Clopidogrel Bisulfate 75 MG TAB PO SCH (08:07)
[2019-06-29] MEDS: Metoprolol Tartrate 25 MG TAB PO SCH ×2 (08:07→20:42)
[2019-06-29] MEDS: Saccharomyces boulardii 250 MG CAP PO SCH (08:08)
[2019-06-29] MEDS: Rivastigmine 4.6mg/24 Hour PATCH TD SCH (08:08)
[2019-06-29] MEDS: Folic Acid 1 MG TAB PO SCH (08:08)
[2019-06-29] MEDS: Ibuprofen 200 MG TAB PO PRN ×2 (08:13→20:41)
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
[2019-06-29] MEDS: Atorvastatin Calcium 10 MG TAB PO SCH (20:42)
[2019-06-29] MEDS: Melatonin 3 MG TAB PO PRN (20:42)
[2019-06-30] MEDS: HYDROcodone/Acetaminophen 10/325 mg Tablet PO PRN ×3 (00:59→20:43)
[2019-06-30] MEDS: Clopidogrel Bisulfate 75 MG TAB PO SCH (08:24)
[2019-06-30] MEDS: Folic Acid 1 MG TAB PO SCH (08:24)
[2019-06-30] MEDS: Saccharomyces boulardii 250 MG CAP PO SCH (08:24)
[2019-06-30] MEDS: Metoprolol Tartrate 25 MG TAB PO SCH ×2 (08:24→20:43)
[2019-06-30] MEDS: Aspirin 325 MG TAB PO SCH (08:24)
[2019-06-30] MEDS: Rivastigmine 4.6mg/24 Hour PATCH TD SCH (08:24)
[2019-06-30] MEDS: Dutasteride 0.5 MG CAP PO SCH (08:24)
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
[2019-06-30] MEDS: Melatonin 3 MG TAB PO PRN (20:43)
[2019-06-30] MEDS: Atorvastatin Calcium 10 MG TAB PO SCH (20:43)
[2019-07-01] MEDS: HYDROcodone/Acetaminophen 10/325 mg Tablet PO PRN ×2 (08:10→21:05)
[2019-07-01] MEDS: Loratadine 10 MG TAB PO PRN (09:00)
[2019-07-01] MEDS: Rivastigmine 4.6mg/24 Hour PATCH TD SCH (09:00)
[2019-07-01] MEDS: Metoprolol Tartrate 25 MG TAB PO SCH ×2 (09:00→21:05)
[2019-07-01] MEDS: Dutasteride 0.5 MG CAP PO SCH (09:00)
[2019-07-01] MEDS: Clopidogrel Bisulfate 75 MG TAB PO SCH (09:01)
[2019-07-01] MEDS: Saccharomyces boulardii 250 MG CAP PO SCH (09:01)
[2019-07-01] MEDS: Aspirin 325 MG TAB PO SCH (09:01)
[2019-07-01] MEDS: Folic Acid 1 MG TAB PO SCH (09:01)
[2019-07-01] MEDS: Ibuprofen 200 MG TAB PO PRN ×2 (10:25→17:18)
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
[2019-07-01] MEDS: Mirtazapine 15 MG TAB PO SCH (21:02)
[2019-07-01] MEDS: Melatonin 3 MG TAB PO PRN (21:04)
[2019-07-01] MEDS: Atorvastatin Calcium 10 MG TAB PO SCH (21:04)
[2019-07-02] MEDS: Rivastigmine 4.6mg/24 Hour PATCH TD SCH (08:31)
[2019-07-02] MEDS: Aspirin 325 MG TAB PO SCH (08:31)
[2019-07-02] MEDS: Dutasteride 0.5 MG CAP PO SCH (08:31)
[2019-07-02] MEDS: Metoprolol Tartrate 25 MG TAB PO SCH ×2 (08:34→20:52)
[2019-07-02] MEDS: Loratadine 10 MG TAB PO PRN (08:34)
[2019-07-02] MEDS: Clopidogrel Bisulfate 75 MG TAB PO SCH (08:34)
[2019-07-02] MEDS: Folic Acid 1 MG TAB PO SCH (08:34)
[2019-07-02] MEDS: HYDROcodone/Acetaminophen 10/325 mg Tablet PO PRN ×2 (15:15→20:52)
[2019-07-02] MEDS: Ibuprofen 200 MG TAB PO PRN (16:18)
[2019-07-02] MEDS: Atorvastatin Calcium 10 MG TAB PO SCH (20:52)
[2019-07-02] MEDS: Mirtazapine 15 MG TAB PO SCH (20:52)
[2019-07-02] MEDS: Melatonin 3 MG TAB PO PRN (20:58)
[2019-07-03 06:53] VITALS: BP 115/60; TEMP 97.4
[2019-07-03] MEDS: Folic Acid 1 MG TAB PO SCH (08:33)
[2019-07-03] MEDS: Aspirin 325 MG TAB PO SCH (08:33)
[2019-07-03] MEDS: Dutasteride 0.5 MG CAP PO SCH (08:34)
[2019-07-03] MEDS: Loratadine 10 MG TAB PO PRN (08:34)
[2019-07-03] MEDS: Rivastigmine 4.6mg/24 Hour PATCH TD SCH (08:34)
[2019-07-03] MEDS: HYDROcodone/Acetaminophen 10/325 mg Tablet PO PRN (08:34)
[2019-07-03] MEDS: Clopidogrel Bisulfate 75 MG TAB PO SCH (08:34)
[2019-07-03] MEDS: Metoprolol Tartrate 25 MG TAB PO SCH (08:34)
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
== END 2019-07-03 10:13 | disposition home or self-care (01) | DRG 948 ==
LOC: MADMS 20:46
PROVIDERS: ADMIT Family Medicine; ATTEND Family Medicine
DX: R53.1 Weakness (principal); K56.7 Ileus, unspecified; S27.329D Contusion of lung, unspecified, subsequent encounter; S12.500D Unspecified displaced fracture of sixth cervical vertebra, subsequent encounter for fracture with routine healing; G30.9 Alzheimer's disease, unspecified; F02.80 Dementia in other diseases classified elsewhere, unspecified severity, without behavioral disturbance, psychotic disturbance, mood disturbance, and anxiety; I25.10 Atherosclerotic heart disease of native coronary artery without angina pectoris; I10 Essential (primary) hypertension; Z79.82 Long term (current) use of aspirin; Z88.8 Allergy status to other drugs, medicaments and biological substances; Z66 Do not resuscitate; R26.89 Other abnormalities of gait and mobility; Z95.5 Presence of coronary angioplasty implant and graft; Z90.49 Acquired absence of other specified parts of digestive tract; Z85.038 Personal history of other malignant neoplasm of large intestine; K21.9 Gastro-esophageal reflux disease without esophagitis; S12.600D Unspecified displaced fracture of seventh cervical vertebra, subsequent encounter for fracture with routine healing; S22.019D Unspecified fracture of first thoracic vertebra, subsequent encounter for fracture with routine healing; S22.029D Unspecified fracture of second thoracic vertebra, subsequent encounter for fracture with routine healing; S22.039D Unspecified fracture of third thoracic vertebra, subsequent encounter for fracture with routine healing; S22.43XD Multiple fractures of ribs, bilateral, subsequent encounter for fracture with routine healing; V64 Occupant of heavy transport vehicle injured in collision with heavy transport vehicle or bus; R00.0 Tachycardia, unspecified; R63.4 Abnormal weight loss; Z68.24 Body mass index [BMI] 24.0-24.9, adult
CPT/HCPCS: 36415; 36416; 71045; 72128; 80048; 80053; 85007; 85025; 85027

== ENCOUNTER 2019-07-28 08:55 | Outpatient (CLI) | payer MEDICARE ==
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
--- NOTE | 2019-07-28 11:39 | CT ---
CT THORACIC SPINE: INDICATIONS: Follow up fractures. COMPARISON: CT thoracic spine from 06/20/2019. TECHNIQUE: Axial tomograms obtained with multiplanar reconstruction. FINDINGS: There is mild superior endplate compression at the T2 and T3 vertebrae, which appear stable from prio r exam. Minimal wedging at these vertebrae appear stable. A burst type fracture at T4 is again noted. There has been progressive loss of central and anterior h eight since the prior exam. There is mild retropulsion of the posterior cortex of T4, which has incre ased slightly since the prior exam. Spinous process fractures are noted at T1, T2 and T3. Left transv erse process fractures at T1. Posterior element fractures are also seen at T3 with fractures through the lamina as they joint the transverse processes. These fractures are stable. Fracture of the right transverse process at T5 and T6. There is loss of disk space at T4 and T5 and there is mild anterior wedging at T5, which appears stab le. Slight superior endplate compression at T6 with minimal wedging is stable. Below T6 there are deg enerative changes with minimal wedging which appears chronic and stable. Multiple right-sided rib fractures. The retropulsion at T4, which has increased slightly, flattens the thecal sac, resulting in mild cent ral canal stenosis. IMPRESSION: 1. The burst type fracture at T4 shows mild progressive loss of central and anterior height. There is slight increased retropulsion at this level, compressing the thecal sac, resulting in mild central c anal stenosis. 2. The other fractures and mild wedging appear stable when compared to prior exam as described above. POS: OFF
== END 2019-07-28 08:56 | disposition home or self-care (01) ==
LOC: MADCT 08:55
PROVIDERS: ATTEND Neurological Surgery
DX: S22.041A Stable burst fracture of fourth thoracic vertebra, initial encounter for closed fracture (principal); S12.500A Unspecified displaced fracture of sixth cervical vertebra, initial encounter for closed fracture; S12.600A Unspecified displaced fracture of seventh cervical vertebra, initial encounter for closed fracture; S22.019A Unspecified fracture of first thoracic vertebra, initial encounter for closed fracture; S22.029A Unspecified fracture of second thoracic vertebra, initial encounter for closed fracture
CPT/HCPCS: 72125; 72128

== ENCOUNTER 2021-01-04 07:28 | Outpatient (CLI) | payer MEDICARE ==
[2021-01-04 08:18] LABS: ALT (SGPT) 28 U/L (8-55); AST (SGOT) 28 U/L (5-34); Albumin 4.1 g/dL (3.4-4.8); Alkaline Phosphatase 150 U/L (40-110); Anion Gap 15 mmol/L (10-20); BUN (Urea Nitrogen) 8 mg/dL (8.4-25.7); Bilirubin, Total 0.7 mg/dL (0.2-1.2); Calc. Creatinine Clearance 0 mL/min (70-130); Calcium 9.2 mg/dL (7.8-10.44); Carbon Dioxide 26 mmol/L (23-31); Cardiac Risk 3.4 (Less than 4.5); Chloride 102 mmol/L (98-107); Cholesterol 144 mg/dl (< 200 Desired); Globulin 3.2 g/dL (2.4-3.5); Glucose 118 mg/dL (83-110); HDL Cholesterol 42 mg/dL (>60 Neg Risk); LDL Cholesterol, Calculated 67 mg/dL; Potassium 4.6 mmol/L (3.5-5.1); Protein, Total 7.3 g/dL (5.8-8.1); Sodium 138 mmol/L (136-145); Triglycerides 176 mg/dL (Less than 150)
== END 2021-01-04 07:29 | disposition home or self-care (01) ==
LOC: MADLAB 07:28
PROVIDERS: ATTEND Family Medicine
DX: E78.5 Hyperlipidemia, unspecified (principal); I10 Essential (primary) hypertension
CPT/HCPCS: 36415; 80053; 80061

== ENCOUNTER 2022-03-26 16:12 | Emergency (ER) | payer MEDICARE ==
[~2022-03-26 16:12] MED LIST: Lactated Ringer's 1,000 ML BAG ONE
[2022-03-26 17:25] LABS: ALT (SGPT) 31 U/L (8-55); AST (SGOT) 37 U/L (5-34); Albumin 3.9 g/dL (3.4-4.8); Alkaline Phosphatase 167 U/L (40-110); Anion Gap 19 mmol/L (10-20); BUN (Urea Nitrogen) 8 mg/dL (8.4-25.7); Calc. Creatinine Clearance 0 mL/min (70-130); Calcium 8.8 mg/dL (7.8-10.44); Carbon Dioxide 21 mmol/L (23-31); Chloride 100 mmol/L (98-107); Globulin 3.2 g/dL (2.4-3.5); Glucose 115 mg/dL (83-110); Potassium 4.7 mmol/L (3.5-5.1); Protein, Total 7.1 g/dL (5.8-8.1); Sodium 135 mmol/L (136-145)
[2022-03-26 17:51] LABS: #Basophils 0.1 thou/uL (0.0-0.2); #Eosinphils 0.3 thou/uL (0.0-0.7); #Lymphocytes 0.8 thou/uL (1.20-3.40); #Monocytes 0.7 thou/uL (0.11-0.59); #Neutrophils 7.3 thou/uL (1.40-6.50); %Basophils 0.9 % (0.0-1.0); %Monocytes 7.8 % (0.0-10.0); %Neutrophils 79.4 % (42.0-75.0); Hemoglobin 14.7 g/dL (14.0-18.0); Mean Corpuscular HGB CONC 31.6 g/dL (32.0-36.0); Mean Corpuscular Hemoglobin 26.1 pg (27.0-31.0); Mean Corpuscular Volume 82.8 fL (78.0-98.0); Mean Platelet Volume 11.2 fL (7.4-10.4); Platelet Count 209 thou/uL (130-400); RBC Distribution Width 14.5 % (11.5-14.5); Red Blood Cell (RBC) Count 5.61 mill/uL (4.70-6.10); White Blood Cell (WBC) Count 9.2 thou/uL (4.8-10.8)
[2022-03-26 18:39] LABS: Bilirubin Negative (Negative); Blood, Urine Negative (Negative); Clarity Clear (Clear); Glucose, Urine (Dipstick) Negative (Negative); Ketone, Urine Negative (Negative); Leukocyte Negative (Negative); Nitrite Negative (Negative); Protein, Urine (Dipstick) Negative (Neg-Trace); Specific Gravity, Urine 1.015 (1.005-1.030); pH, Urine 5.5 (5.0-9.0)
[2022-03-26 18:40] LABS: SARS-CoV-2 NAA Rapid Test DETECTED (NotDetected)
[2022-03-26] MEDS ORDERED: Albuterol Sulfate 2.5 mg/3 ml Neb ONE (19:08)
[2022-03-26] MEDS ORDERED: Albuterol 200 PUFF (6.7GM INHALER) ONE (19:08)
== END 2022-03-26 19:36 | disposition home or self-care (01) ==
LOC: MADERS 16:12
DX: U07.1 COVID-19 (principal); K21.9 Gastro-esophageal reflux disease without esophagitis; E78.5 Hyperlipidemia, unspecified; E78.00 Pure hypercholesterolemia, unspecified; I10 Essential (primary) hypertension; Z87.891 Personal history of nicotine dependence; Z79.899 Other long term (current) drug therapy
CPT/HCPCS: 36415; 70450; 71045; 80053; 81003; 83605; 85025; 93005; 94760; 96360; J7120; J7611

== ENCOUNTER 2022-04-05 08:21 | Emergency (ER) | payer MEDICARE ==
[2022-04-05 08:57] LABS: #Basophils 0.1 thou/uL (0.0-0.2); #Eosinphils 0.1 thou/uL (0.0-0.7); #Lymphocytes 1.2 thou/uL (1.20-3.40); #Monocytes 0.6 thou/uL (0.11-0.59); #Neutrophils 6.6 thou/uL (1.40-6.50); %Basophils 0.9 % (0.0-1.0); %Eosinophils 1.7 % (0.0-10.0); %Lymphocytes 13.5 % (21.0-51.0); %Monocytes 6.7 % (0.0-10.0); %Neutrophils 77.3 % (42.0-75.0); Hemoglobin 14.2 g/dL (14.0-18.0); Mean Corpuscular HGB CONC 32.3 g/dL (32.0-36.0); Mean Corpuscular Hemoglobin 26.2 pg (27.0-31.0); Mean Platelet Volume 10.4 fL (7.4-10.4); Platelet Count 214 thou/uL (130-400); RBC Distribution Width 14.4 % (11.5-14.5); Red Blood Cell (RBC) Count 5.44 mill/uL (4.70-6.10); White Blood Cell (WBC) Count 8.5 thou/uL (4.8-10.8)
[2022-04-05 09:12] LABS: ALT (SGPT) 22 U/L (8-55); AST (SGOT) 22 U/L (5-34); Albumin 3.6 g/dL (3.4-4.8); Alkaline Phosphatase 153 U/L (40-110); Anion Gap 15 mmol/L (10-20); BUN (Urea Nitrogen) 9 mg/dL (8.4-25.7); Bilirubin, Total 1.2 mg/dL (0.2-1.2); Calc. Creatinine Clearance 0 mL/min (70-130); Carbon Dioxide 25 mmol/L (23-31); Chloride 103 mmol/L (98-107); Globulin 3.6 g/dL (2.4-3.5); Glucose 120 mg/dL (83-110); Lipase 39 U/L (8-78); Magnesium 2.3 mg/dL (1.6-2.6); Potassium 3.7 mmol/L (3.5-5.1); Protein, Total 7.2 g/dL (5.8-8.1); Sodium 139 mmol/L (136-145)
== END 2022-04-05 10:00 | disposition home or self-care (01) ==
LOC: MADERS 08:21
DX: U07.1 COVID-19 (principal); I25.2 Old myocardial infarction; K21.9 Gastro-esophageal reflux disease without esophagitis; E78.5 Hyperlipidemia, unspecified; I10 Essential (primary) hypertension; Z87.891 Personal history of nicotine dependence
CPT/HCPCS: 36415; 51701; 71045; 80053; 83605; 83690; 83735; 84484; 85025; 93005; 94760